=== PATIENT | female | born 1935 | race Caucasian/White ===

== ENCOUNTER 2022-07-31 07:55 | Emergency (ER) | payer MEDICARE ==
[2022-07-31] MEDS ORDERED: Acetaminophen 500 MG TAB ONE (09:10)
== END 2022-07-31 09:42 | disposition home or self-care (01) ==
LOC: BURERS 07:55
DX: S53.402A Unspecified sprain of left elbow, initial encounter (principal); S56.812A Strain of other muscles, fascia and tendons at forearm level, left arm, initial encounter; J44.9 Chronic obstructive pulmonary disease, unspecified; I12.9 Hypertensive chronic kidney disease with stage 1 through stage 4 chronic kidney disease, or unspecified chronic kidney disease; N18.9 Chronic kidney disease, unspecified; W19.XXXA Unspecified fall, initial encounter
CPT/HCPCS: 12002

== ENCOUNTER 2022-10-10 11:04 | Emergency (ER) | payer MEDICARE | END 2022-10-10 11:43 | LOC: BURERS 11:04 | DX: S50.11XA Contusion of right forearm, initial encounter (principal); I12.9 Hypertensive chronic kidney disease with stage 1 through stage 4 chronic kidney disease, or unspecified chronic kidney disease; N18.9 Chronic kidney disease, unspecified; J44.9 Chronic obstructive pulmonary disease, unspecified; Z79.01 Long term (current) use of anticoagulants | CPT/HCPCS: 99283 ==